=== PATIENT | female | born 1990 | race African-American/Black ===

== ENCOUNTER 2024-04-17 16:24 | Emergency (ER) | payer MEDICAID ==
[~2024-04-17] VITALS: Ht 170.2 cm; Wt 112.0 kg
[2024-04-17 16:31] VITALS: BP 129/86; O2SAT 99
[2024-04-17 16:38] VITALS: PULSE 108; RESP 16; O2SAT 100
[2024-04-17 18:13] LABS: CLARITY URINE CLEAR (CLEAR); COLOR URINE YELLOW (YELLOW); GLUCOSE URINE NEGATIVE (NEGATIVE); KETONES URINE TRACE (NEGATIVE); LEUKOCYTE ESTERASE URINE NEGATIVE (NEGATIVE); NITRITE URINE NEGATIVE (NEGATIVE); OCCULT BLOOD URINE NEGATIVE (NEGATIVE); PH URINE 6.5 (4.5-8.0); PROTEIN URINE TRACE (NEGATIVE); SPECIFIC GRAVITY URINE 1.025 (1.005-1.030)
[2024-04-17 18:35] LABS: BASOPHILS % 0.4 % (0.0-2.0); EOSINOPHILS % 1.4 % (0.0-5.0); HEMATOCRIT. 39.5 % (36.0-48.0); HEMOGLOBIN. 13.2 g/dL (12.0-16.0); LYMPHOCYTES % 10.6 % (20.0-50.0); MEAN CORPUSCULAR HEMOGLOBIN 30.4 pg (28.0-32.0); MEAN CORPUSCULAR HGB CONC 33.5 g/dL (31.0-37.0); MEAN CORPUSCULAR VOLUME 90.8 fL (81.0-99.0); MONOCYTES % 7.8 % (2.0-8.0); NEUTROPHILS % 79.8 % (40.0-76.0); RED BLOOD CELL COUNT 4.35 mill/uL (4.2-5.4); RED CELL DISTRIBUTION WIDTH 13.6 % (11.6-14.6); WHITE BLOOD COUNT 9.2 x1000/uL (4.5-11.0)
[2024-04-17 18:37] LABS: DIFFERENTIAL COMMENT 1
[2024-04-17 18:40] LABS: CHLORIDE 107 mEq/L (98-107); POTASSIUM 3.5 mEq/L (3.5-5.1); SODIUM 136 mEq/L (136-145)
[2024-04-17 18:41] LABS: CARBON DIOXIDE 24 mEq/L (21-32)
[2024-04-17 18:42] LABS: CALCIUM 9.7 mg/dL (8.7-10.4)
[2024-04-17 18:46] LABS: CREATININE 0.7 mg/dL (0.6-1.0); GLUCOSE 88 mg/dL (70-105); UREA NITROGEN BLOOD 7 mg/dL (9-23)
[2024-04-17 19:01] LABS: B-HCG QUANTITATIVE 65422 mIU/mL (<3)
[2024-04-17 19:23] LABS: RBC URINE NONE SEEN /hpf (0-2); WBC URINE 0-2 /hpf (0-2)
[2024-04-17 19:24] LABS: BACTERIA URINE TRACE
[2024-04-17 19:25] LABS: SQUAMOUS EPITHELIAL CELL URINE 2+ /lpf (RARE/1+)
[2024-04-17 19:36] LABS: MEAN PLATELET VOLUME 7.6 fl (7.4-10.4); PLATELET 232 x1000/uL (130-400)
[2024-04-17 19:51] VITALS: TEMP 98.4
[2024-04-17] MEDS: ACETAMINOPHEN 325MG TABLET PO ONE (19:51)
== END 2024-04-17 21:37 | disposition home or self-care (01) ==
LOC: ER 16:24
DX: O26.892 Other specified pregnancy related conditions, second trimester (principal); R10.2 Pelvic and perineal pain; R10.84 Generalized abdominal pain; Z3A.14 14 weeks gestation of pregnancy
CPT/HCPCS: 36415; 76801; 80048; 81003; 84702; 85025; 86850; 86900; 99284

== ENCOUNTER 2025-01-02 10:12 | Emergency (ER) | payer MEDICAID ==
[~2025-01-02] VITALS: Ht 170.2 cm; Wt 113.0 kg
[2025-01-02 10:27] VITALS: O2SAT 99
[2025-01-02] MEDS: ACETAMINOPHEN 500MG TABLET PO ONE (11:10)
[2025-01-02 11:58] VITALS: BP 118/66; PULSE 78; RESP 18; TEMP 36.9; O2SAT 99
== END 2025-01-02 11:59 | disposition home or self-care (01) ==
LOC: ER 10:12
DX: R05.9 Cough, unspecified (principal); J02.9 Acute pharyngitis, unspecified; R51.9 Headache, unspecified; Z90.49 Acquired absence of other specified parts of digestive tract
CPT/HCPCS: 71045; 99283